=== PATIENT | male | born 1940 | race Caucasian/White ===

== ENCOUNTER 2021-03-13 11:09 | Emergency (ER) | payer MEDICARE ==
--- NOTE | 2021-03-13 13:14 | CR ---
Indication: Injured 4 days ago with pain Technique: Three images as AP, Y and axillary views Comparison: None Findings: No fracture, dislocation or destructive process. Mild degenerative changes. No soft tissue abnormality by plain film. No foreign body. Incidental degenerative changes of the spine. Impression: Degenerative changes. No visible acute fracture, dislocation or destructive process. Dictated by Fredy Vernon MD @ 03/13/2021 1:12:39 PM (Electronically Signed)
--- NOTE | 2021-03-13 13:53 | EDM.PDOC ---
ED HPI GENERAL MEDICAL PROBLEM - General Chief Complaint: Upper Extremity Injury/Pain Stated Complaint: LT SHOULDER Time Seen by Provider: 03/13/21 11:15 Source of Information: Reports: Patient - History of Present Illness INITIAL COMMENTS - FREE TEXT/NARRATIVE: Patient presents with left shoulder pain. The patient slipped and grabbed his truck and pulled his arm and felt something in his left shoulder. No head or neck injury. Moderate symptoms worse with movement. No numbness or weakness L shoulder Pain Score (Numeric/FACES): 10 - Related Data Allergies Allergy/AdvReac Type Severity Reaction Status Date / Time No Known Allergies Allergy Verified 03/13/21 11:14 Home Meds: Home Meds Aspirin 81 mg PO DAILY 03/13/21 [History] Cholecalciferol (Vitamin D3) [Vitamin D3] 5,000 unit PO DAILY 03/13/21 [History] Levothyroxine Sodium [Synthroid] 75 mcg PO DAILY 03/13/21 [History] Past Medical History HEENT History: Reports: None Cardiovascular History: Reports: None Respiratory History: Reports: None Gastrointestinal History: Reports: None Genitourinary History: Reports: None Musculoskeletal History: Reports: None Neurological History: Reports: None Psychiatric History: Reports: None Endocrine/Metabolic History: Reports: Hypothyroidism Hematologic History: Reports: None Immunologic History: Reports: None Oncologic (Cancer) History: Reports: None Dermatologic History: Reports: None - Infectious Disease History Infectious Disease History: Reports: Chicken Pox, Measles, Mumps - Past Surgical History Head Surgeries/Procedures: Reports: None Endocrine Surgical History: Reports: None Musculoskeletal Surgical History: Reports: Knee Replacement, Other (See Below) Other Musculoskeletal Surgeries/Procedures:: bilateral knee replacement Social & Family History - Family History Family Medical History: No Pertinent Family History - Tobacco Use Tobacco Use Status *Q: Former Tobacco User Used Tobacco, but Quit: Yes Month/Year Tobacco Last Used: 1984 - Caffeine Use Caffeine Use: Reports: Coffee - Recreational Drug Use Recreational Drug Use: No Review of Systems - Review of Systems Review Of Systems: See Below Constitutional: Reports: No Symptoms Ears: Reports: Other (No head injury) Musculoskeletal: Reports: Shoulder Pain Skin: Reports: No Symptoms Neurological: Denies: Numbness, Tingling, Weakness ED EXAM, GENERAL - Physical Exam Exam: See Below Free Text/Narrative:: CONSTITUTIONAL: well appearing in no acute distress SKIN: dry, and intact without rash HENT: Normocephalic, atraumatic, NECK: normal range of motion PULMONARY: normal chest rise and fall, no respiratory distress or stridor NEUROLOGIC: normal speech, moves all extremities, grossly non-focal MUSCULOSKELETAL: Mild tenderness to the left shoulder. Patient has good full range of motion of the shoulder. Strong radial pulse. Cap refill less than [address] function in [address] PSYCHIATRIC: normal mood and affect Course - Vital Signs Text/Narrative:: Differential diagnosis: Rotator cuff injury, fracture, dislocation, strain, other Patient presents with shoulder injury. X-ray negative. Neurovascular intact. NSAIDs with PCP and Ortho follow-up discussed if symptoms persist Last Recorded V/S: Last Vital Signs Temp 36.1 C 03/13/21 11:16 Pulse 60 03/13/21 11:16 Resp 16 03/13/21 11:16 BP 161/84 H 03/13/21 11:16 Pulse Ox 94 L 03/13/21 11:16 Departure - Departure Time of Disposition: 13:52 Disposition: Home, Self-Care 01 Condition: Good Clinical Impression: Injury of left shoulder - Discharge Information Instructions: Shoulder Sprain Referrals: PCP,None [Primary Care Provider] - Additional Instructions: Take ibuprofen [id number] for pain as needed. Follow-up with primary care doctor or an orthopedic doctor if your pain persist for next step in treatment and management. Return for any change or worsening condition or numbness or weakness. The following information is given to patients seen in the emergency department who are being discharged to home. This information is to outline your options for follow-up care. We provide all patients seen in our emergency department with a follow-up referral. The need for follow-up, as well as the timing and circumstances, are variable de pending upon the specifics of your emergency department visit. If you don't have a primary care physician on staff, we will provide you with a referral. We always advise you to contact your personal physician following an emergency department visit to inform them of the circumstance of the visit and for follow-up with them and/or the need for any referrals to a consulting specialist. The emergency department will also refer you to a specialist when appropriate. This referral assures that you have the opportunity for follow-up care with a specialist. All of these measure are taken in an effort to provide you with optimal care, which includes your follow-up. Primary care clinics in the area: [facility] [address] [place] [address] [facility] [address] [place] [address] Under all circumstances we always encourage you to contact your private physician who remains a resource for coordinating your care. When calling for follow-up care, please make the office aware that this follow-up is from your recent emergency room visit. If for any reason you are refused follow-up, please contact the [facility] at and asked to speak to the emergency department charge nurse. Sepsis Event Note (ED) - Evaluation Sepsis Screening Result: No Definite Risk - Focused Exam Vital Signs: Vital Signs Temp Pulse Resp BP Pulse Ox 03/13/21 11:16 36.1 C 60 16 161/84 H 94 L
== END 2021-03-13 13:59 | disposition home or self-care (01) ==
LOC: MW.ED 11:09
DX: S49.92XA Unspecified injury of left shoulder and upper arm, initial encounter (principal); E03.9 Hypothyroidism, unspecified; Z79.82 Long term (current) use of aspirin; Z79.899 Other long term (current) drug therapy; Z87.891 Personal history of nicotine dependence; W18.49XA Other slipping, tripping and stumbling without falling, initial encounter
CPT/HCPCS: 73030-26-LT; 73030-LT; 99283